=== PATIENT | male | born 1975 | race Caucasian/White ===

== ENCOUNTER 2018-07-07 05:44 | Inpatient (IN) | payer OTHER ==
[~2018-07-07] VITALS: Ht 172.7 cm; Wt 79.5 kg
[2018-07-07 06:48] LABS: HEMATOCRIT. 36.4 % (42.0-52.0); MEAN CORPUSCULAR VOLUME 93.4 fL (80.0-94.0); MEAN PLATELET VOLUME 9.6 fl (7.4-10.4); PLATELET 129 x1000/uL (130-400); RED CELL DISTRIBUTION WIDTH 13.8 % (11.6-14.6)
[2018-07-07] MEDS ORDERED: FAMOTIDINE 20MG/2ML VIAL IV ONE (07:00)
[2018-07-07 07:07] LABS: CHLORIDE 92 mEq/L (98-107)
[2018-07-07 07:11] LABS: ETHANOL BLOOD 84 mg/dL
[2018-07-07 07:23] LABS: HEMOGLOBIN. 12.4 g/dL (14.0-18.0); MEAN CORPUSCULAR HEMOGLOBIN 31.8 pg (28.0-32.0)
[2018-07-07 07:27] LABS: CLARITY URINE CLOUDY (CLEAR); COLOR URINE DARK YELLOW (YELLOW); KETONES URINE TRACE (NEGATIVE); LEUKOCYTE ESTERASE URINE 1+ (NEGATIVE); NITRITE URINE POSITIVE (NEGATIVE); OCCULT BLOOD URINE TRACE (NEGATIVE); PH URINE 5.5 (4.5-8.0); PROTEIN URINE 2+ (NEGATIVE); SPECIFIC GRAVITY URINE 1.021 (1.005-1.030)
[2018-07-07] MEDS ORDERED: LORAZEPAM 2MG/ML CPJ IV NR (07:45)
[2018-07-07 07:50] LABS: PLATELET ESTIMATE NORMAL
[2018-07-07] MEDS ORDERED: ONDANSETRON HCL 4MG/2ML INJ IV NR (07:53)
[2018-07-07] MEDS ORDERED: SODIUM CHLORIDE 0.9% 1,000 ML IV NR (07:53)
[2018-07-07] MEDS ORDERED: MORPHINE SULFATE 4 MG/ML CPJ (NOT FOR IM USE) IV NR (07:53)
[2018-07-07] MEDS ORDERED: CEFTRIAXONE 2 G PREMIX 50 ML IV ONE (08:15)
[2018-07-07 10:25] VITALS: BP 123/71
[2018-07-07] MEDS ORDERED: ONDANSETRON HCL 4MG/2ML INJ IV PRN (10:30)
[2018-07-07] MEDS ORDERED: DOCUSATE SODIUM 100MG CAPSULE PO PRN (10:30)
[2018-07-07] MEDS ORDERED: ACETAMINOPHEN 325MG TABLET PO PRN (10:30)
[2018-07-07] MEDS ORDERED: LORAZEPAM 0.5MG TABLET PO PRN (10:30)
[2018-07-07] MEDS ORDERED: TRAMADOL 50MG TABLET PO PRN (10:30)
[2018-07-07] MEDS ORDERED: CLONIDINE 0.1MG TABLET PO PRN (10:30)
[2018-07-07] MEDS ORDERED: MAGNESIUM/ALUMINUM HYDROXIDE/SIMETHICONE 30ML UDC PO PRN (10:30)
[2018-07-07] MEDS ORDERED: DIPHENHYDRAMINE 50MG/ML VIAL IV PRN (10:30)
[2018-07-07] MEDS ORDERED: NA PHOS,M-B/NA PHOS,DI-BA ENEMA 118ML PR PRN (10:30)
[2018-07-07] MEDS ORDERED: IPRATROPIUM/ALBUTEROL 0.5-3(2.5)MG/3ML NEB INH PRN (10:30)
[2018-07-07 12:00] VITALS: BP 120/61
[2018-07-07] MEDS ORDERED: MVI, ADULT NO.1 10 ML, FOLIC ACID 1 MG, THIAMINE HCL 100 MG in SODIUM CHLORIDE 0.9% 1,0... IV SCH ×4 (12:00)
[2018-07-07] MEDS ORDERED: ASPI-1158 PO (12:53)
[2018-07-07 12:55] VITALS: BP 120/61
[2018-07-07] MEDS: KETOROLAC 15MG/ML VIAL IV PRN ×2 (13:11→20:17)
[2018-07-07] MEDS: SODIUM CHLORIDE 0.9% 1,000 ML IV SCH ×2 (13:51→17:10)
[2018-07-07] MEDS ORDERED: POTASSIUM CHLORIDE 20MEQ/PACKET PO NR (14:30)
[2018-07-07 16:00] VITALS: BP 123/69
[2018-07-07 16:03] LABS: *AMPHETAMINES SCREEN URINE NEGATIVE (NEGATIVE); *BARBITURATES SCREEN URINE NEGATIVE (NEGATIVE); *BENZODIAZEPINES SCREEN URINE NEGATIVE (NEGATIVE); *COCAINE SCREEN URINE NEGATIVE (NEGATIVE)
[2018-07-07 16:04] LABS: CANNABINOID URINE SCREEN NEGATIVE (NEGATIVE); METHADONE URINE SCREEN NEGATIVE (NEGATIVE); OPIATES URINE SCREEN PRESUMTIVE POSITIVE (NEGATIVE); PHENCYCLIDINE URINE SCREEN NEGATIVE (NEGATIVE)
[2018-07-07 20:00] VITALS: BP 133/78
[2018-07-07] MEDS: LEVOFLOXACIN 500MG PREMIX 100 ML IV SCH (20:09)
[2018-07-07] MEDS ORDERED: ZOLPIDEM TARTRATE 5MG TABLET PO PRN (21:00)
[2018-07-08] VITALS: BP 120/76
[2018-07-08] MEDS: KETOROLAC 15MG/ML VIAL IV PRN ×4 (00:39→20:21)
[2018-07-08 04:00] VITALS: BP 122/75
[2018-07-08] MEDS: SODIUM CHLORIDE 0.9% 1,000 ML IV SCH ×4 (07:23→20:24)
[2018-07-08 08:00] VITALS: BP 122/62
[2018-07-08] MEDS: PANTOPRAZOLE SODIUM 40 MG/VIAL IV SCH (08:20)
[2018-07-08 12:00] VITALS: BP 125/80
[2018-07-08 12:51] LABS: CHLORIDE 100 mEq/L (98-107)
[2018-07-08 12:56] LABS: AMYLASE 309 IU/L (25-115)
[2018-07-08 16:00] VITALS: BP 120/77
[2018-07-08 20:00] VITALS: BP_SYST 123; BP_SYST 130; BP_DIAS 49; BP_DIAS 77
[2018-07-08] MEDS: LEVOFLOXACIN 500MG PREMIX 100 ML IV SCH (20:17)
[2018-07-09] VITALS: BP 128/77
[2018-07-09] MEDS: SODIUM CHLORIDE 0.9% 1,000 ML IV SCH ×2 (02:30→10:44)
[2018-07-09 04:00] VITALS: BP 137/88
[2018-07-09] MEDS: KETOROLAC 15MG/ML VIAL IV PRN (05:57)
[2018-07-09 08:00] VITALS: BP 135/88
[2018-07-09] MEDS: PANTOPRAZOLE SODIUM 40 MG/VIAL IV SCH (08:30)
[2018-07-09 12:00] VITALS: BP 126/78
[2018-07-09 14:12] VITALS: BP 126/126
[2018-07-10] MEDS ORDERED: FAMOTIDINE 20MG/2ML VIAL IV SCH (09:00)
== END 2018-07-09 15:06 | disposition home or self-care (01) | DRG 282 ==
LOC: ER 05:44 → 7WST 08:17 → EDBEDREQ 08:20 → EDBEDREQTM 08:20 → ENRESERV 08:26
PROVIDERS: ADMIT Internal Medicine; ATTEND Internal Medicine
DX: K85.20 Alcohol induced acute pancreatitis without necrosis or infection (principal); E43 Unspecified severe protein-calorie malnutrition; D69.59 Other secondary thrombocytopenia; E83.51 Hypocalcemia; K76.0 Fatty (change of) liver, not elsewhere classified; F10.129 Alcohol abuse with intoxication, unspecified; E78.00 Pure hypercholesterolemia, unspecified; E87.1 Hypo-osmolality and hyponatremia; E87.6 Hypokalemia; I10 Essential (primary) hypertension; N39.0 Urinary tract infection, site not specified; F17.210 Nicotine dependence, cigarettes, uncomplicated; Y90.4 Blood alcohol level of 80-99 mg/100 ml; Z71.41 Alcohol abuse counseling and surveillance of alcoholic; Z79.899 Other long term (current) drug therapy; Z88.0 Allergy status to penicillin; Z90.79 Acquired absence of other genital organ(s); Z68.26 Body mass index [BMI] 26.0-26.9, adult
CPT/HCPCS: 36415; 74176; 80053; 80305; 81003; 82150; 83036; 83690; 85025; 93970; 96365; 96375; 99285; C9113; G0482; J0696; J1885; J1956; J2060; J2270; J2405; J3411; J3490; J7030